=== PATIENT | male | born 1980 | race Caucasian/White ===

== ENCOUNTER 2018-09-27 05:42 | Inpatient (IN) | payer MEDICARE, MEDICAID ==
[~2018-09-27] VITALS: Ht 170.2 cm; Wt 83.6 kg
[~2018-09-27 05:42] MED LIST: ALBU8.5H8 INH; ESCI10TA10 PO; FLUO40CA9 PO; GABA600T7 PO; HYDR-3307 PO; Muscle Relaxer PO; OXYC15TA75 PO; SIMV20TA3 PO; TIZA2CAP2 PO; flexeril PO
[2018-09-27 06:21] VITALS: BP 111/73
[2018-09-27] MEDS ORDERED: MICROFIBRILLAR COLLAGEN 1 GM TP ONE (06:22)
[2018-09-27] MEDS ORDERED: THROMBIN 5,000 UNIT VIAL TP ONE (06:22)
[2018-09-27] MEDS ORDERED: BACITRACIN 50,000 UNIT ONE (06:23)
[2018-09-27] MEDS ORDERED: THROMBIN 20,000 UNIT VIAL TP ONE (06:23)
[2018-09-27] MEDS ORDERED: FENTANYL PF 250 MCG/5ML ONE (06:29)
[2018-09-27] MEDS ORDERED: MIDAZOLAM 1 MG/ML, 2ML ONE (06:29)
[2018-09-27] MEDS ORDERED: ACETAMINOPHEN 500 MG TABLET PO ONE (06:30)
[2018-09-27] MEDS ORDERED: GABAPENTIN 300 MG CAPSULE PO ONE (06:30)
[2018-09-27] MEDS ORDERED: NEOSTIGMINE 1 MG/ML, 10ML ONE (06:36)
[2018-09-27] MEDS ORDERED: CEFAZOLIN 1,000 MG ONE (06:36)
[2018-09-27] MEDS ORDERED: PROPOFOL 10 MG/ML, 20ML ONE (06:36)
[2018-09-27] MEDS ORDERED: ROCURONIUM 10MG/ML,5ML ONE (06:36)
[2018-09-27] MEDS ORDERED: GLYCOPYRROLATE 0.2MG/1ML, 5ML ONE (06:36)
[2018-09-27] MEDS ORDERED: PROPOFOL 50 ML ONE ×2 (06:37→07:29)
[2018-09-27] MEDS ORDERED: SUCCINYLCHOLINE 20 MG/ML, 10ML ONE (06:39)
[2018-09-27] MEDS ORDERED: CLINDAMYCIN 150 MG/ML, 6ML ONE (06:54)
[2018-09-27] MEDS ORDERED: PROMETHAZINE 25 MG/ML, 1ML IV PRN (07:00)
[2018-09-27] MEDS ORDERED: ONDANSETRON 2MG/ML, 2ML IV PRN (07:00)
[2018-09-27] MEDS ORDERED: MEPERIDINE/PF 25MG/0.5ML IVPush PRN (07:00)
[2018-09-27] MEDS ORDERED: PROMETHAZINE 25 MG/ML, 1ML IM PRN ×3 (07:00→09:00)
[2018-09-27] MEDS ORDERED: MORPHINE SULFATE 4 MG/ML, 1ML IVPush PRN (07:00)
[2018-09-27] MEDS ORDERED: ONDANSETRON ODT 8 MG PO PRN (07:00)
[2018-09-27] MEDS ORDERED: PROMETHAZINE 25 MG SUPP PR PRN (07:00)
[2018-09-27] MEDS ORDERED: OXYcodone 5 MG/5 ML ORAL.SOL UDC PO PRN (07:00)
[2018-09-27] MEDS ORDERED: PROMETHAZINE 12.5 MG SUPP PR PRN (07:00)
[2018-09-27] MEDS ORDERED: hydrALAzine 20 MG/ML, 1ML IV PRN (07:00)
[2018-09-27] MEDS ORDERED: LABETALOL 5MG/ML, 20ML IV PRN (07:00)
[2018-09-27] MEDS ORDERED: HEPARIN 1,000 UNITS/ML, 30ML ONE (07:37)
[2018-09-27] MEDS ORDERED: FENTANYL PF 100 MCG/2ML ONE ×2 (08:33→09:11)
[2018-09-27] MEDS ORDERED: BISACODYL 10 MG SUPP PR PRN (09:00)
[2018-09-27] MEDS ORDERED: PHARMACY MAY ADJ FOR RENAL FX MC PRN (09:00)
[2018-09-27] MEDS ORDERED: ONDANSETRON 2MG/ML, 2ML IVPush PRN (09:00)
[2018-09-27] MEDS ORDERED: CYCLOBENZAPRINE 10 MG TABLET PO PRN (09:00)
[2018-09-27] MEDS ORDERED: SENNA/DOCUSATE TABLET PO PRN (09:00)
[2018-09-27] MEDS ORDERED: ALBUTEROL SULFATE 2.5 MG/3 ML HHN PRN (09:00)
[2018-09-27] MEDS ORDERED: DIPHENHYDRAMINE 50 MG/ML, 1ML IVPush PRN (09:00)
[2018-09-27] MEDS ORDERED: MAGNESIUM HYDROXIDE 8%, 30ML UDC PO PRN (09:00)
[2018-09-27] MEDS ORDERED: HYDROcodone/APAP 5/325 TABLET PO PRN (09:00)
[2018-09-27] MEDS ORDERED: HYDROcodone/APAP 10/325 MG TABLET PO PRN (09:00)
[2018-09-27] MEDS: GABAPENTIN 300 MG CAPSULE PO SCH ×3 (09:00→21:38)
[2018-09-27] MEDS: SODIUM CHLORIDE FLUSH 10ML SYR IVF SCH ×2 (09:00→21:00)
[2018-09-27] MEDS ORDERED: HYDROmorphone 2 MG/ML, 1ML ONE (09:11)
[2018-09-27] MEDS ORDERED: CYCLOBENZAPRINE 10 MG TABLET ONE (09:11)
[2018-09-27] MEDS: FENTANYL PF 100 MCG/2ML IV PRN ×2 (09:12→09:17)
[2018-09-27] MEDS: HYDROmorphone 2 MG/ML, 1ML IVPush PRN ×4 (09:22→10:00)
[2018-09-27] MEDS ORDERED: DIAZEPAM 5 MG/ML, 2ML IVPush PRN (09:30)
[2018-09-27] MEDS ORDERED: OXYcodone 5 MG/5 ML ORAL.SOL UDC ONE (10:10)
[2018-09-27] MEDS: METHOCARBAMOL 750 MG TABLET PO PRN ×2 (11:58→21:37)
[2018-09-27] MEDS: D5%-0.9% NACL+KCL 20MEQ 1,000 ML IV SCH (11:59)
[2018-09-27] MEDS ORDERED: ALBUTEROL SULFATE 2.5 MG/3 ML NPPB PRN (12:30)
[2018-09-27 13:00] VITALS: BP 110/64
[2018-09-27] MEDS: morphine SULFATE 10 MG/ML, 1ML IVPush PRN (14:54)
[2018-09-27] MEDS: OXYcodone/APAP 5/325MG TABLET PO PRN ×2 (16:52→21:37)
[2018-09-27] MEDS: CLINDAMYCIN PMX 600MG/50ML 50 ML IV SCH (16:52)
[2018-09-27 20:01] VITALS: BP 100/64
[2018-09-28] MEDS: CLINDAMYCIN PMX 600MG/50ML 50 ML IV SCH (00:52)
[2018-09-28 01:12] VITALS: BP 119/81
[2018-09-28] MEDS: D5%-0.9% NACL+KCL 20MEQ 1,000 ML IV SCH ×2 (01:20→14:40)
[2018-09-28] MEDS: OXYcodone/APAP 5/325MG TABLET PO PRN (04:34)
[2018-09-28 04:37] VITALS: BP 96/60
[2018-09-28 04:57] LABS: BASOPHILS # (AUTO) 0.01 x10^3/uL (0-0.1); BASOPHILS % (AUTO) 0 % (0-1); EOSINOPHILS # (AUTO) 0.19 x10^3/uL (0-0.4); EOSINOPHILS % (AUTO) 3 % (1-7); LYMPHOCYTES # (AUTO) 1.44 x10^3/uL (1-3.4); LYMPHOCYTES % (AUTO) 25 % (22-44); MD NO; MEAN CORPUSCULAR HEMOGLOBIN 29.6 pg (27.5-34.5); MEAN CORPUSCULAR HGB CONC 33.7 g/dL (33.2-36.2); MEAN CORPUSCULAR VOLUME 87.9 fL (81-97); MEAN PLATELET VOLUME 7.7 fL (7.4-10.4); MONOCYTES # (AUTO) 0.38 x10^3/uL (0.2-0.8); MONOCYTES % (AUTO) 7 % (2-9); NEUTROPHILS # (AUTO) 3.64 x10^3/uL (1.8-6.8); NEUTROPHILS % (AUTO) 64 % (42-75); PLATELET COUNT 186 x10^3/uL (130-400); RED BLOOD COUNT 4.45 x10^6/uL (4.38-5.82); RED CELL DISTRIBUTION WIDTH 13.5 % (9.4-14.8)
[2018-09-28 05:05] LABS: ANION GAP 6 mmol/L (5-15); CALCIUM 8.3 mg/dL (8.5-10.1); CHLORIDE 112 mmol/L (98-107); CREATININE 0.76 mg/dL (0.7-1.3)
[2018-09-28 06:38] VITALS: BP 102/69
[2018-09-28] MEDS: ENOXAPARIN 40 MG/0.4 ML SQ SCH (07:10)
[2018-09-28] MEDS: GABAPENTIN 300 MG CAPSULE PO SCH ×2 (07:56→16:11)
[2018-09-28] MEDS: SODIUM CHLORIDE FLUSH 10ML SYR IVF SCH ×2 (07:58→21:00)
[2018-09-28] MEDS: morphine SULFATE 10 MG/ML, 1ML IVPush PRN ×3 (08:58→20:08)
[2018-09-28 15:09] VITALS: BP 99/66
[2018-09-28 19:00] VITALS: BP 100/65
[2018-09-29] MEDS: GABAPENTIN 300 MG CAPSULE PO SCH ×4 (01:36→22:20)
[2018-09-29] MEDS: morphine SULFATE 10 MG/ML, 1ML IVPush PRN ×2 (01:36→05:04)
[2018-09-29 01:49] VITALS: BP 123/78
[2018-09-29] MEDS: ENOXAPARIN 40 MG/0.4 ML SQ SCH (05:14)
[2018-09-29 05:37] LABS: BASOPHILS # (AUTO) 0.01 x10^3/uL (0-0.1); BASOPHILS % (AUTO) 0 % (0-1); EOSINOPHILS # (AUTO) 0.19 x10^3/uL (0-0.4); EOSINOPHILS % (AUTO) 3 % (1-7); LYMPHOCYTES # (AUTO) 1.57 x10^3/uL (1-3.4); LYMPHOCYTES % (AUTO) 25 % (22-44); MD NO; MEAN CORPUSCULAR HEMOGLOBIN 29.4 pg (27.5-34.5); MEAN CORPUSCULAR HGB CONC 33.2 g/dL (33.2-36.2); MEAN CORPUSCULAR VOLUME 88.4 fL (81-97); MEAN PLATELET VOLUME 7.7 fL (7.4-10.4); MONOCYTES # (AUTO) 0.48 x10^3/uL (0.2-0.8); MONOCYTES % (AUTO) 8 % (2-9); NEUTROPHILS # (AUTO) 4.11 x10^3/uL (1.8-6.8); NEUTROPHILS % (AUTO) 65 % (42-75); PLATELET COUNT 217 x10^3/uL (130-400); RED BLOOD COUNT 4.87 x10^6/uL (4.38-5.82); RED CELL DISTRIBUTION WIDTH 13.4 % (9.4-14.8)
[2018-09-29 05:42] LABS: ANION GAP 5 mmol/L (5-15); CALCIUM 9.1 mg/dL (8.5-10.1); CHLORIDE 108 mmol/L (98-107)
[2018-09-29] MEDS ORDERED: BUPIVACAINE 0.25% ONE (05:54)
[2018-09-29] MEDS ORDERED: VANCOMYCIN 1,000 MG ONE (05:55)
[2018-09-29] MEDS ORDERED: FENTANYL PF 100 MCG/2ML ONE ×2 (05:55→10:49)
[2018-09-29] MEDS ORDERED: BACITRACIN 50,000 UNIT ONE (05:55)
[2018-09-29] MEDS ORDERED: BUPIVACAINE/PF-EPI 0.5% 1:200K ONE ×2 (06:09→09:17)
[2018-09-29] MEDS ORDERED: THROMBIN 5,000 UNIT VIAL TP ONE (06:10)
[2018-09-29] MEDS ORDERED: FENTANYL PF 250 MCG/5ML ONE ×3 (06:54→08:15)
[2018-09-29] MEDS ORDERED: MIDAZOLAM 1 MG/ML, 2ML ONE (06:54)
[2018-09-29] MEDS ORDERED: CEFAZOLIN 1,000 MG ONE (07:16)
[2018-09-29] MEDS ORDERED: PROPOFOL 10 MG/ML, 20ML ONE (07:16)
[2018-09-29] MEDS ORDERED: SUCCINYLCHOLINE 20 MG/ML, 10ML ONE (07:16)
[2018-09-29] MEDS ORDERED: DEXAMETHASONE 4 MG/ML, 1ML ONE (07:16)
[2018-09-29] MEDS ORDERED: ROCURONIUM 10MG/ML,5ML ONE (07:16)
[2018-09-29] MEDS ORDERED: ONDANSETRON 2MG/ML, 2ML ONE (07:16)
[2018-09-29] MEDS ORDERED: EPHEDRINE 50 MG/ML, 1ML IVPush PRN (09:00)
[2018-09-29] MEDS ORDERED: ONDANSETRON 2MG/ML, 2ML IV PRN (09:00)
[2018-09-29] MEDS ORDERED: DIPHENHYDRAMINE 50 MG/ML, 1ML IVPush PRN ×2 (09:00→11:00)
[2018-09-29] MEDS ORDERED: MEPERIDINE/PF 25MG/0.5ML IVPush PRN (09:00)
[2018-09-29] MEDS ORDERED: DIAZEPAM 5 MG/ML, 2ML IVPush PRN (09:00)
[2018-09-29] MEDS: SODIUM CHLORIDE FLUSH 10ML SYR IVF SCH ×2 (09:00→22:20)
[2018-09-29] MEDS ORDERED: PROMETHAZINE 25 MG/ML, 1ML IV PRN (09:00)
[2018-09-29] MEDS ORDERED: OXYcodone 5 MG/5 ML ORAL.SOL UDC PO PRN ×2 (09:00→12:00)
[2018-09-29] MEDS ORDERED: EPHEDRINE 50 MG/ML, 1ML IM PRN (09:00)
[2018-09-29] MEDS ORDERED: MIDAZOLAM 1 MG/ML, 2ML IV PRN (09:00)
[2018-09-29] MEDS ORDERED: MORPHINE SULFATE 4 MG/ML, 1ML IVPush PRN (09:00)
[2018-09-29] MEDS ORDERED: ONDANSETRON ODT 8 MG PO PRN (09:00)
[2018-09-29] MEDS ORDERED: hydrALAzine 20 MG/ML, 1ML IV PRN (09:00)
[2018-09-29] MEDS ORDERED: METOPROLOL 1 MG/ML, 5ML IV PRN (09:00)
[2018-09-29] MEDS ORDERED: BUPIVACAINE LIPOSOME/PF 10ML INFIL ONE (09:42)
[2018-09-29] MEDS: D5%-0.9% NACL+KCL 20MEQ 1,000 ML IV SCH (10:00)
[2018-09-29] MEDS ORDERED: OXYcodone 5 MG/5 ML ORAL.SOL UDC ONE ×2 (10:49→11:37)
[2018-09-29] MEDS ORDERED: MAGNESIUM HYDROXIDE 8%, 30ML UDC PO PRN (11:00)
[2018-09-29] MEDS ORDERED: morphine SULFATE 10 MG/ML, 1ML IVPush PRN (11:00)
[2018-09-29] MEDS ORDERED: SENNA/DOCUSATE TABLET PO PRN (11:00)
[2018-09-29] MEDS ORDERED: BISACODYL 10 MG SUPP PR PRN (11:00)
[2018-09-29] MEDS ORDERED: PROMETHAZINE 25 MG/ML, 1ML IM PRN (11:00)
[2018-09-29] MEDS ORDERED: ONDANSETRON 2MG/ML, 2ML IVPush PRN (11:00)
[2018-09-29] MEDS ORDERED: HYDROcodone/APAP 10/325 MG TABLET PO PRN (11:00)
[2018-09-29] MEDS ORDERED: HYDROcodone/APAP 5/325 TABLET PO PRN (11:00)
[2018-09-29] MEDS ORDERED: CYCLOBENZAPRINE 10 MG TABLET PO PRN (11:00)
[2018-09-29] MEDS ORDERED: PHARMACY MAY ADJ FOR RENAL FX MC PRN (11:00)
[2018-09-29] MEDS ORDERED: EPHEDRINE 50 MG/ML, 1ML ONE (11:07)
[2018-09-29] MEDS: FENTANYL PF 100 MCG/2ML IV PRN ×2 (11:30→11:40)
[2018-09-29] MEDS ORDERED: HYDROmorphone 2 MG/ML, 1ML IVPush PRN (12:00)
[2018-09-29] MEDS ORDERED: MEPERIDINE/PF 25MG/ML,1ML ONE (12:02)
[2018-09-29 13:05] VITALS: BP 97/62
[2018-09-29] MEDS: NS + 20MEQ KCL 1,000 ML IV SCH ×2 (13:34→23:55)
[2018-09-29] MEDS: METHOCARBAMOL 750 MG TABLET PO PRN (15:27)
[2018-09-29] MEDS: OXYcodone/APAP 5/325MG TABLET PO PRN ×2 (16:23→20:29)
[2018-09-29 20:31] VITALS: BP 107/68
[2018-09-29] MEDS ORDERED: LORazepam 2 MG/ML, 1ML ONE (23:51)
[2018-09-30] MEDS ORDERED: LORazepam 2 MG/ML, 1ML IVPush PRN
[2018-09-30 00:25] VITALS: BP 90/48
[2018-09-30] MEDS: OXYcodone/APAP 5/325MG TABLET PO PRN ×6 (00:28→21:53)
[2018-09-30 04:45] VITALS: BP 96/57
[2018-09-30] MEDS: ENOXAPARIN 40 MG/0.4 ML SQ SCH (05:41)
[2018-09-30] MEDS: METHOCARBAMOL 750 MG TABLET PO PRN ×2 (05:41→15:59)
[2018-09-30 05:56] LABS: BASOPHILS # (AUTO) 0.01 x10^3/uL (0-0.1); BASOPHILS % (AUTO) 0 % (0-1); EOSINOPHILS # (AUTO) 0.07 x10^3/uL (0-0.4); EOSINOPHILS % (AUTO) 1 % (1-7); LYMPHOCYTES # (AUTO) 1.56 x10^3/uL (1-3.4); LYMPHOCYTES % (AUTO) 23 % (22-44); MD NO; MEAN CORPUSCULAR HEMOGLOBIN 29.5 pg (27.5-34.5); MEAN CORPUSCULAR HGB CONC 33.5 g/dL (33.2-36.2); MEAN CORPUSCULAR VOLUME 88.1 fL (81-97); MEAN PLATELET VOLUME 7.6 fL (7.4-10.4); MONOCYTES # (AUTO) 0.53 x10^3/uL (0.2-0.8); MONOCYTES % (AUTO) 8 % (2-9); NEUTROPHILS # (AUTO) 4.71 x10^3/uL (1.8-6.8); NEUTROPHILS % (AUTO) 69 % (42-75); PLATELET COUNT 191 x10^3/uL (130-400); RED BLOOD COUNT 4.03 x10^6/uL (4.38-5.82); RED CELL DISTRIBUTION WIDTH 13.4 % (9.4-14.8)
[2018-09-30 07:59] VITALS: BP 89/56
[2018-09-30] MEDS ORDERED: MORPHINE SULFATE 4 MG/ML, 1ML IVPush PRN (09:00)
[2018-09-30] MEDS ORDERED: DEXAMETHASONE 4 MG/ML, 1ML IVPush ONE (09:00)
[2018-09-30] MEDS ORDERED: KETOROLAC 30 MG/1 ML IVPush PRN (09:00)
[2018-09-30] MEDS: GABAPENTIN 300 MG CAPSULE PO SCH ×3 (09:22→20:18)
[2018-09-30] MEDS: SODIUM CHLORIDE FLUSH 10ML SYR IVF SCH ×2 (09:26→20:18)
[2018-09-30] MEDS: NS + 20MEQ KCL 1,000 ML IV SCH (13:40)
[2018-09-30 14:06] VITALS: BP 112/71
[2018-09-30] MEDS: DEXAMETHASONE 4 MG/ML, 1ML IVPush SCH ×2 (15:52→20:18)
[2018-09-30 19:00] VITALS: BP 111/67
[2018-09-30] MEDS: AMITRIPTYLINE 25 MG TABLET PO SCH (20:18)
[2018-10-01] MEDS: METHOCARBAMOL 750 MG TABLET PO PRN (00:07)
[2018-10-01] MEDS: OXYcodone/APAP 5/325MG TABLET PO PRN ×2 (01:45→05:47)
[2018-10-01 02:06] VITALS: BP 100/64
[2018-10-01] MEDS: NS + 20MEQ KCL 1,000 ML IV SCH ×2 (03:00→16:20)
[2018-10-01] MEDS: DEXAMETHASONE 4 MG/ML, 1ML IVPush SCH ×4 (03:11→20:52)
[2018-10-01 05:46] LABS: BASOPHILS % (AUTO) 0 % (0-1); EOSINOPHILS % (AUTO) 0 % (1-7); LYMPHOCYTES # (AUTO) 0.62 x10^3/uL (1-3.4); LYMPHOCYTES % (AUTO) 6 % (22-44); MD NO; MEAN CORPUSCULAR HEMOGLOBIN 29.5 pg (27.5-34.5); MEAN CORPUSCULAR HGB CONC 33.2 g/dL (33.2-36.2); MEAN CORPUSCULAR VOLUME 88.7 fL (81-97); MEAN PLATELET VOLUME 7.7 fL (7.4-10.4); MONOCYTES # (AUTO) 0.31 x10^3/uL (0.2-0.8); MONOCYTES % (AUTO) 3 % (2-9); NEUTROPHILS # (AUTO) 9.04 x10^3/uL (1.8-6.8); NEUTROPHILS % (AUTO) 91 % (42-75); PLATELET COUNT 232 x10^3/uL (130-400); RED BLOOD COUNT 4.25 x10^6/uL (4.38-5.82); RED CELL DISTRIBUTION WIDTH 13.4 % (9.4-14.8)
[2018-10-01] MEDS: ENOXAPARIN 40 MG/0.4 ML SQ SCH (05:47)
[2018-10-01 06:49] VITALS: BP 121/77
[2018-10-01] MEDS: OXYcodone IR 5MG TABLET PO PRN ×4 (09:14→22:42)
[2018-10-01] MEDS: SODIUM CHLORIDE FLUSH 10ML SYR IVF SCH ×2 (09:14→20:53)
[2018-10-01] MEDS: GABAPENTIN 300 MG CAPSULE PO SCH ×3 (09:15→20:52)
[2018-10-01 12:29] VITALS: BP 107/67
[2018-10-01] MEDS: TIZANIDINE 4MG TABLET PO SCH ×3 (12:50→20:52)
[2018-10-01 19:27] VITALS: BP 106/74
[2018-10-01] MEDS: AMITRIPTYLINE 25 MG TABLET PO SCH (20:52)
[2018-10-02] MEDS: OXYcodone IR 5MG TABLET PO PRN ×3 (02:51→10:57)
[2018-10-02 02:53] VITALS: BP 116/75
[2018-10-02 04:44] LABS: BASOPHILS # (AUTO) 0.01 x10^3/uL (0-0.1); BASOPHILS % (AUTO) 0 % (0-1); EOSINOPHILS % (AUTO) 0 % (1-7); LYMPHOCYTES # (AUTO) 1.12 x10^3/uL (1-3.4); LYMPHOCYTES % (AUTO) 12 % (22-44); MD NO; MEAN CORPUSCULAR HEMOGLOBIN 29.8 pg (27.5-34.5); MEAN CORPUSCULAR HGB CONC 33.7 g/dL (33.2-36.2); MEAN CORPUSCULAR VOLUME 88.3 fL (81-97); MEAN PLATELET VOLUME 7.9 fL (7.4-10.4); MONOCYTES # (AUTO) 0.41 x10^3/uL (0.2-0.8); MONOCYTES % (AUTO) 4 % (2-9); NEUTROPHILS # (AUTO) 7.65 x10^3/uL (1.8-6.8); NEUTROPHILS % (AUTO) 83 % (42-75); PLATELET COUNT 273 x10^3/uL (130-400); RED BLOOD COUNT 4.29 x10^6/uL (4.38-5.82); RED CELL DISTRIBUTION WIDTH 13.5 % (9.4-14.8)
[2018-10-02] MEDS: NS + 20MEQ KCL 1,000 ML IV SCH (05:40)
[2018-10-02] MEDS: TIZANIDINE 4MG TABLET PO SCH ×2 (06:27→10:57)
[2018-10-02] MEDS: ENOXAPARIN 40 MG/0.4 ML SQ SCH (06:27)
[2018-10-02 07:11] VITALS: BP 108/7
[2018-10-02] MEDS: GABAPENTIN 300 MG CAPSULE PO SCH (08:50)
[2018-10-02] MEDS: SODIUM CHLORIDE FLUSH 10ML SYR IVF SCH (08:50)
[2018-10-02 10:50] VITALS: BP 118/71
[2018-10-02] MEDS ORDERED: OXYC5TAB3 PO (11:39)
[2018-10-02] MEDS ORDERED: TIZA4CAP2 PO (11:40)
[2018-10-02] MEDS ORDERED: SULF1TAB24 PO (11:44)
== END 2018-10-02 12:12 | disposition home health service (06) | DRG 454 ==
LOC: ORIP 05:42 → 4NOR 10:45 → DCLOUNGE 10-02 11:58
PROVIDERS: ADMIT Neurological Surgery; ATTEND Neurological Surgery
PROC: XRG New Technology, Joints, Fusion (ICD-10-PCS; 2018-09-27)
PROC: 4A11X4G Monitoring of Peripheral Nervous Electrical Activity, Intraoperative, External Approach (ICD-10-PCS; 2018-09-27)
PROC: 0SB40ZZ Excision of Lumbosacral Disc, Open Approach (ICD-10-PCS; principal; 2018-09-27 07:00)
PROC: 0SG0071 Fusion of Lumbar Vertebral Joint with Autologous Tissue Substitute, Posterior Approach, Posterior Column, Open Approach (ICD-10-PCS; 2018-09-29)
PROC: 0SG00A0 Fusion of Lumbar Vertebral Joint with Interbody Fusion Device, Anterior Approach, Anterior Column, Open Approach (ICD-10-PCS; 2018-09-29)
PROC: 0SB40ZZ Excision of Lumbosacral Disc, Open Approach (ICD-10-PCS; 2018-09-29)
PROC: 01NB0ZZ Release Lumbar Nerve, Open Approach (ICD-10-PCS; 2018-09-29)
PROC: 00NY0ZZ Release Lumbar Spinal Cord, Open Approach (ICD-10-PCS; 2018-09-29)
PROC: 4A11X4G Monitoring of Peripheral Nervous Electrical Activity, Intraoperative, External Approach (ICD-10-PCS; 2018-09-29)
PROC: 0SG3071 Fusion of Lumbosacral Joint with Autologous Tissue Substitute, Posterior Approach, Posterior Column, Open Approach (ICD-10-PCS; 2018-09-29)
DX: M48.061 Spinal stenosis, lumbar region without neurogenic claudication (principal); G95.29 Other cord compression; M51.17 Intervertebral disc disorders with radiculopathy, lumbosacral region; M21.379 Foot drop, unspecified foot; M40.56 Lordosis, unspecified, lumbar region; M51.26 Other intervertebral disc displacement, lumbar region; M51.36 Other intervertebral disc degeneration, lumbar region; G89.4 Chronic pain syndrome; Z60.2 Problems related to living alone; Z88.0 Allergy status to penicillin
CPT/HCPCS: 36415; 72100; 72131; 80048; 85025; 86850; 86900; C1713; G0378; J0690; J1100; J1170; J1644; J1650; J2175; J2250; J2405; J2704; J2710; J3010; J3360; J3370; J3480; J3490; C1760; C1763; C1769; J0330; J1200; J2060; J2270